=== PATIENT | female | born 1960 | race Caucasian/White ===

== ENCOUNTER → 2019-05-14 | Day surgery (SDC) | payer OTHER ==
--- NOTE | 2019-05-10 11:00 | NUR ---
Checked patient's temperature: 98.4F via skin probe. Patient denies being out of the country in the last 14 days. Patient denies being around anyone who has been out of the country in the last 14 days. Patient denies being around anyone who has been exposed or diagnosed with [place] virus within the last 14 days. Patient denies fever, cough, or shortness of breath.
[2019-05-10 11:49] LABS: BASOPHILS # (AUTO) 0.1 (0.0-0.1); BASOPHILS % 0.9 % (0.0-1.0); EOSINOPHILS # (AUTO) 0.3 (0.0-0.4); EOSINOPHILS % 5.1 % (0.0-6.0); HEMATOCRIT 42.8 % (34.2-44.1); HEMOGLOBIN 14.4 g/dL (12.0-16.0); LYMPHOCYTES # (AUTO) 1.6 (1.0-3.2); LYMPHOCYTES % 27.1 % (18.0-39.1); MEAN CORPUSCULAR HEMOGLOBIN 29.8 pg (28-32); MEAN CORPUSCULAR HGB CONC 33.6 g/dL (31-35); MEAN CORPUSCULAR VOLUME 88.4 fL (81-99); MONOCYTES # (AUTO) 0.5 (0.2-0.8); MONOCYTES % 9.1 % (4.4-11.3); NEUTROPHILS # (AUTO) 3.4 (2.1-6.9); NEUTROPHILS % 57.5 % (38.7-80.0); PLATELET COUNT 280 x10e3/uL (140-360); RED BLOOD COUNT 4.84 x10e6/uL (3.6-5.1); RED CELL DISTRIBUTION WIDTH 12.2 % (11.7-14.4)
[2019-05-10 12:07] LABS: ALANINE AMINOTRANSFERASE 20 IU/L (0-55); ALBUMIN 4.3 g/dL (3.5-5.0); ALBUMIN/GLOBULIN RATIO 1.5 (0.8-2.0); ALKALINE PHOSPHATASE 111 IU/L (40-150); BLOOD UREA NITROGEN 12 mg/dL (7-26); BUN/CREATININE RATIO 17 (6-25); CALCIUM 9.8 mg/dL (8.4-10.2); CARBON DIOXIDE 28 mmol/L (22-29); CHLORIDE 105 mmol/L (98-107); EST GLOMERULAR FILTRATION RATE > 60 ML/MIN (60-); GLUCOSE 105 mg/dL (74-118); SODIUM 142 mmol/L (136-145)
--- NOTE | 2019-05-13 16:00 | NUR ---
Patient notified to arrive at 0630 on 05/14/2019 for procedure. Patient verbalized understanding.
[~2019-05-14] VITALS: Ht 165.1 cm; Wt 77.1 kg
[~2019-05-14] MED LIST: ALPRAZOLAM 0.5 MG TAB ONE; ATORVASTATIN CA20 MG PO; COQ-10100 MG PO; DIPHENHYDRAMINE HCL 25 MG CAP ONE; FENTANYL CITRATE/PF 100MCG/2 ML INJ ONE; HEPARIN SOD (PORCINE) 1000 UNIT/ML 30ML ONE; IOPAMIDOL 370 MG/ML 200 ML INFUS..BTL INJ ONE; LIDOCAINE HCL 2% LOCAL 20 ML VIAL ONE; MELOXICAM7.5 MG PO; MIDAZOLAM HCL 2 MG/2 ML VIAL ONE; NITROGLYCERIN/D5W 200 MCG/ML 250 ML ONE; RANITIDINE HCL150 MG PO; SODIUM CHLORIDE 0.9% 1000ML 1,000 ML ONE; VERAPAMIL HCL 2.5 MG/ML 2 ML VIAL ONE; VITAMIN D3 PO
[2019-05-14 07:23] VITALS: BP 172/100
[2019-05-14 08:51] VITALS: BP 141/91
--- NOTE | 2019-05-14 08:51 | NUR ---
0851am RECEIVING NOTE MATERIAL ANALYST RECOVERY DEPT............................................................... Bedside report received from PATRICIA Kessler. Identifierx2. Alert oriented and appropriate, PERRLA, respirations even and unlabored to room air. Pulses x4 extremities equal and strong. Pedal pulses PT/DP X4 and marked. TR band can reduce air at 0945am No candelario issues pain pallor pressure or dysrhythmia. Skin warm and dry integrity appears D/I. IV 20g to left hand. Presents healthy w/o s/s of infiltration or complaint. Abdomen soft and supple. pt offered toileting, denies need to urinate or defecate. No personal affects with patient. Family at bedside. Pt and family verbalizes understanding of POC. Currently w/o complaint of pain or need. ds/rn
--- NOTE | 2019-05-14 09:09 | Operative Report ---
DATE OF PROCEDURE: 05/14/2019 SURGEON: Mark Ulrich MD INDICATION: Angina, abnormal stress test, unstable. PROCEDURES PERFORMED: 1. Left heart catheterization, selective coronary angiography. 2. Deployment of right wrist TR band. 3. Conscious sedation administration. Hemodynamic and neurological monitoring and recovery back seed laboratory technician RN with supervision by , 35 minutes. COMPLICATIONS: None. RECOMMENDATIONS: Medical therapy. DESCRIPTION OF PROCEDURE: Access obtained in the right radial artery. A 5-Maori sheath was placed. Coronary angiography demonstrated no angiographic coronary artery disease. Excellent flow in all vessels. However, mid right coronary artery had severe spasm. This resolved spontaneously. LV end-diastolic pressure of 10. No gradient across the aortic valve pullback. No intervention deemed necessary. Right wrist TR band applied. The patient discharged home same day. Mark Ulrich MD [facility] /[id number]
[2019-05-14 09:40] VITALS: BP 138/91
[2019-05-14 10:00] VITALS: BP 138/77
[2019-05-14 10:15] VITALS: BP 100/69
[2019-05-14 10:30] VITALS: BP 128/77
--- NOTE | 2019-05-14 10:30 | NUR ---
1030 am [employer] ARCHITECT RECOVERY DISCHARGE NURSING NOTE Pt meets DC criteria. Rt Tr band site assessed for s/s of complication and presence of hematoma. Skin warm, dry, no discolor, and pulses present. IV removed from left hand. Distal tip appears intact. VS WNL. Pt denies pain, sob, or need at this time. Family at bedside. Review of discharge paperwork and follow up instructions. verbalized understanding. Pt to wheelchair and transported to front of hospital. Transferred to private vehicle under own strength w/o incident with DC paperwork in hand. - edison/triny
== END | disposition home or self-care (01) ==
LOC: CATH LAB 06:11
PROVIDERS: ATTEND Internal Medicine Interventional Cardiology
DX: I25.110 Atherosclerotic heart disease of native coronary artery with unstable angina pectoris (principal); R94.39 Abnormal result of other cardiovascular function study; E78.5 Hyperlipidemia, unspecified; K21.9 Gastro-esophageal reflux disease without esophagitis; Z82.49 Family history of ischemic heart disease and other diseases of the circulatory system
CPT/HCPCS: 36415; 80053; 85025; 93458; C1769; C1887; J1644; J2001; J2250; J3010; J7030; Q9967; 99152